=== PATIENT | female | born 1960 | race African-American/Black ===

== ENCOUNTER 2016-10-04 17:04 | Emergency (ER) | payer MEDICAID ==
[2011-11-11 07:00] VITALS: BMI 31.8
[2016-10-04 18:05] LABS: BASOPHILS 0.3 % (0.0-2.0); EOSINOPHILS 1.7 % (0-7); HEMATOCRIT 40.8 % (36.0-48.0); HEMOGLOBIN 14.3 g/dL (12-16); IMMATURE GRANULOCYTES 0.1 % (0-5); LYMPHOCYTES 43.8 % (15-50); MCH 29.4 pg (26.0-34.0); MEAN PLATELET VOLUME 10.7 fL (7.4-10.4); MONOCYTES 7.7 % (2-11); NEUTROPHILS 46.4 % (40-80); PLATELET COUNT 245 10x3/uL (130-400); RBC 4.86 10x6/uL (4.00-5.40); RDW 13.4 % (11.5-14.5); WBC 9.2 10x3/uL (4.8-10.8)
[2016-10-04 18:30] LABS: ALKALINE PHOSPHATASE 86 U/L (46-116); ALT (SGPT) 35 U/L (10-68); BILIRUBIN - TOTAL 0.38 mg/dL (0.2-1.3); CALC OSMOLALITY 269 mosm/kg (275-300); CARBON DIOXIDE 30.8 mmol/L (21.0-32.0); CHLORIDE - SERUM 96 mmol/L (98-107); CKMB 0.5 U/L (0.0-3.6); CREATINE KINASE 171 UL (21-215); CREATININE - SERUM 1.1 mg/dL (0.6-1.3); DIGOXIN 1.44 ng/mL (0.90-2.00); GLUCOSE 87 mg/dL (74-106); PROTEIN - SERUM 7.7 g/dL (6.4-8.2); SODIUM 136 mmol/L (136-145); UREA NITROGEN 10 mg/dL (7-18); eGFR NON AFRICAN AMERICAN 54 mL/min (90-120)
[2016-10-04 18:32] LABS: POTASSIUM - SERUM 2.3 mmol/L (3.5-5.1)
== END 2016-10-04 22:37 | disposition home or self-care (01) ==
LOC: D.ER 17:04
PROVIDERS: Physician Assistant Medical
DX: F41.9 Anxiety disorder, unspecified (principal); R00.8 Other abnormalities of heart beat; I10 Essential (primary) hypertension; E87.6 Hypokalemia; G62.9 Polyneuropathy, unspecified; Z95.0 Presence of cardiac pacemaker; F17.200 Nicotine dependence, unspecified, uncomplicated

== ENCOUNTER → 2016-10-14 16:23 | Outpatient (CLI) | payer MEDICAID ==
[2011-11-11 07:00] VITALS: BMI 31.8
== END | disposition home or self-care (01) ==
LOC: D.MAMMO 09-22 16:00
DX: Z12.31 Encounter for screening mammogram for malignant neoplasm of breast (principal)

== ENCOUNTER → 2018-04-16 19:00 | Outpatient (CLI) | payer MEDICAID ==
[2011-11-11 07:00] VITALS: BMI 31.8
== END | disposition home or self-care (01) ==
LOC: D.MAMMO 14:15
DX: Z12.31 Encounter for screening mammogram for malignant neoplasm of breast (principal)

== ENCOUNTER 2018-06-15 14:53 | Day surgery (SDC) | payer MEDICAID ==
[~2018-06-15] VITALS: Ht 165.1 cm; Wt 89.1 kg
--- NOTE | ~2018-06-15 | OP ---
PATIENT NAME: CHAPARRO LANZA MEDICAL RECORD: [id number] :58 LOCATION:D.OPS ADMISSION DATE: SURGEON: MATT MILLARD MD DATE OF OPERATION: 06/15/2018 NOTE: This is a redictation of previously dictated operative note. However, there was a difficulty with the butter grader as there was some silent starting at the butter grader and some words that I did not enunciate well enough, so this is a redictation of the entire operative report was 06/15/2018. PREOPERATIVE DIAGNOSES: 1. Screening colonoscopy to rule out a large bowel neoplasm. 2. Weight loss. POSTOPERATIVE DIAGNOSES: 1. Screening colonoscopy to rule out a large bowel neoplasm. 2. Weight loss. 3. Questionable polyp of the ileocecal valve. PROCEDURES: 1. Total colonoscopy to cecum. 2. Hot biopsy forceps polypectomy of the ileocecal valve. SURGEON: Matt Millard MD AIRCRAFT MAINTENANCE MANAGER: None. BLOOD LOSS: Minimal. ANESTHESIA: IV sedation. COMPLICATIONS: None. The risks, possible complications and alternatives to the procedure were explained to the patient. She elects to proceed. The reason for the anesthesia staff being present during the procedure includes anxiety regarding the procedure. OPERATIVE COURSE: The patient was conveyed to the endoscopy suite electively on 06/15/2018. IV sedation was induced by the anesthesia staff. The patient was placed in the Gauthier position. A digital rectal examination was performed. A colonoscope was inserted through the anus. It was easily advanced to the cecum. The prep was adequate. I slowly withdrew the endoscope. A combination of normal imaging and narrow band imaging was utilized. I dragged the folds. There was an area on the superior lip of the ileocecal valve, which may represent a polyp or may represent just an area of focal colitis. Utilized the hot biopsy forceps polypectomy technique to remove this in its entirety. The pullback was greater than 18-minute pullback. A retroflexed view was obtained in the rectum. I then unretroflexed the scope and removed it under direct vision. OPERATIVE REPORT [id number] CHAPARRO LANZA I would like to see the patient in my office in 2-3 weeks. If the lesion on her ileocecal valve is not an adenomatous polyp, then I would recommend that the patient undergo her next screening colonoscopy in 10 years unless she develops new symptoms such as melena or bleeding. TRANSINT:[id number] Voice Confirmation ID: [id number] DOCUMENT ID: [id number] MATT MILLARD MD at 1415 CC: [id number] DICTATION DATE: 06/28/18 163 [employer] SORTER: 06/28/18 2345 [facility] 06/15/18 [place] [id number]
--- NOTE | ~2018-06-15 | HP ---
PATIENT: CHAPARRO LANZA MEDICAL RECORD: [id number] ACCOUNT: [id number] LOCATION:[facility] : 58 ADMISSION DATE: 06/15/18 PCP: PAOLA CAPUTO DO HISTORY AND PHYSICAL EXAMINATION CHIEF COMPLAINT: Here for endoscopy. HISTORY OF PRESENT ILLNESS: The patient is here for colonoscopy. She has been asymptomatic. She states that cancer runs in her family, but she is not sure what kind of cancer it is. She has been on anticoagulants in the past and HAS AN ALLERGY TO PLAVIX, but she is not sure why she has been on anticoagulants. ALLERGIES: PLAVIX. HOME MEDICATIONS: Please see the nursing list. SOCIAL HISTORY: She is a smoker. PAST MEDICAL AND SURGICAL HISTORY: COPD, coronary artery disease, hypertension, history of myocardial infarction, history of SVT, history of AICD/pacemaker, history of bilateral lower extremity numbness, history of arthritis, history of gastroesophageal reflux which is controlled. REVIEW OF SYSTEMS: Upon review of systems, she has been losing her hair and losing weight, she states. PHYSICAL EXAMINATION: GENERAL: The patient does not appear acutely ill. She does not appear chronically ill. The entire physical examination was performed in the presence of a female nurse. CARDIOVASCULAR: Regular rhythm. PULMONARY: Nonlabored. ABDOMEN: No peritonitis with movement. EXTREMITIES: No peripheral cyanosis. IMPRESSION: Desires a screening colonoscopy to rule out a large bowel malignancy. PLAN: Colonoscopy. The risks, possible complications, and alternatives to procedure were discussed with the patient. TRANSINT:[id number] Voice Confirmation ID: [id number] DOCUMENT ID: [id number] ALMA MILLARD MD at 1017 CC: PAOLA CAPUTO DO and JODI ALVA [id number] DICTATION DATE: 06/15/18 1024 [employer] PULLER: 06/15/18 1104 [facility] [place] 06/15/18 [place] [id number] [place] [address]
[2018-06-15 07:24] LABS: ANION GAP 15.9 mmol/L (8-16); CALCIUM 9.2 mg/dL (8.5-10.1); CARBON DIOXIDE 25.1 mmol/L (21.0-32.0); CREATININE - SERUM 1.4 mg/dL (0.6-1.3)
[2018-06-15 07:46] LABS: HEMATOCRIT 41.9 % (36.0-48.0); HEMOGLOBIN 14.4 g/dL (12-16); MCH 29.1 pg (26.0-34.0); MCHC 34.4 g/dL (31.0-37.0); MCV 84.6 fL (80.0-100.0); MEAN PLATELET VOLUME 10.4 fL (7.4-10.4); RBC 4.95 10x6/uL (4.00-5.40); WBC 7.8 10x3/uL (4.8-10.8)
[2018-06-15 09:02] VITALS: BP 126/71; Ht 165.1 cm; Wt 89.1 kg
[~2018-06-15 14:53] MED LIST: ATIVAN2 MG PO; CELEXA20 MG PO; CHLORTHALIDONE25 MG PO; LASIX20 MG PO; LINZESS145 MCG PO; LIPITOR20 MG PO; MOBIC7.5 MG PO; NEURONTIN 400400 MG PO; NORCO 10-325 TA1 TAB PO; PROPAFENONE HC150 MG PO; PROZAC20 MG PO; REQUIP0.5 MG PO; VERELAN180 MG PO; XANAX0.5 MG PO
== END 2018-06-15 14:54 | disposition home or self-care (01) ==
LOC: D.OPS 14:53
PROVIDERS: Anesthesiology
DX: K63.5 Polyp of colon (principal); J44.9 Chronic obstructive pulmonary disease, unspecified; I25.10 Atherosclerotic heart disease of native coronary artery without angina pectoris; I10 Essential (primary) hypertension; I25.2 Old myocardial infarction; Z95.810 Presence of automatic (implantable) cardiac defibrillator; M19.90 Unspecified osteoarthritis, unspecified site; K21.9 Gastro-esophageal reflux disease without esophagitis; Z01.812 Encounter for preprocedural laboratory examination

== ENCOUNTER 2020-12-17 18:30 | Outpatient (CLI) | payer MEDICARE ==
[2018-06-15 09:02] VITALS: BMI 32.6
== END 2020-12-17 23:59 | disposition home or self-care (01) ==
LOC: D.MAMMO 18:30
PROVIDERS: ATTEND Family Medicine
DX: Z12.31 Encounter for screening mammogram for malignant neoplasm of breast (principal)